=== PATIENT | male | born 1955 | race Caucasian/White ===

== ENCOUNTER → 2017-12-18 09:07 | Outpatient (CLI) | payer BC, SELFPAY ==
--- NOTE | 2017-12-18 09:14 | RAD_ITS ---
STUDY: X-RAY CHEST REASON FOR EXAM: Male, 62 years old. Chronic cough. TECHNIQUE: PA and lateral views of the chest. COMPARISON: None. FINDINGS: There is a 2.3 x 1.6 x 2.0 cm density in the lateral right midlung. Allowing for the overlapping density of the calcified first costal cartilages on the frontal view, the left lung is clear and expanded. There is no demonstrated pleural abnormality. Normal size heart. Normal mediastinum and alize. Normal visualized pulmonary arteries. Normal visualized aortic arch and descending thoracic aorta. There are multilevel degenerative changes of the visualized thoracic spine. 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 There is no demonstrated abnormality of the visualized soft tissue structures of the upper abdomen. RAD/Chest PA and Lateral IMPRESSION: 2 cm density in the lateral right midlung of indeterminate etiology. Comparison with any previous outside studies would be useful, if available. One could consider time interval follow-up to document clearing and/or further characterization with CT. Electronically Signed: Oliver Mccain MD at 11:50 EDT , Service support ,
== END ==
PROVIDERS: Family Provider Family Medicine; PCP Family Medicine; Visit Provider Family Medicine
DX: R05 Cough (principal)
CPT/HCPCS: 71046